=== PATIENT | female | born 1960 | race African-American/Black ===

== ENCOUNTER 2024-01-17 05:27 | Emergency (ER) | payer OTHER, SELFPAY ==
[2024-01-17 05:56] VITALS: BP 127/59; PULSE 66; RESP 18; TEMP 36.5; O2SAT 96; BMI 38.0
[2024-01-17 06:12] VITALS: BP 144/77; PULSE 67; RESP 17; TEMP 36.6; O2SAT 98
--- OUTSIDE RECORDS SUMMARY | 2024-01-17 06:36 | XMS_ITS | Continuity of Care Document ---
Author Organization [facility] Address [address] [place] [address]- Care Team Providers Care Arbitrator Name Role Phone Nessa Sheridan MD Primary Care Physician Encounter [facility] Date(s): 04/12/21 - 05/12/21 [facility] [address] [place] [address] Attending Physician: Jeffrey Tyler Admitting Physician: Jeffrey Tyler Referring Physician: Jeffrey Tyler Allergies, Adverse Reactions, Alerts Substance Reaction Severity Status penicillins Active Immunizations Given and Recorded Vaccine Date Status Refusal Reason influenza virus vaccine, inactivated 06/07/19 Give n tetanus/diphtheria/pertussis, acel(Tdap) 04/13/19 Given Medications Percocet-5/325 325 mg-5 mg oral tablet 1 tablet, By Mouth, Every 6 hours, PRN Pain , Moderate, # 12 tablet, 0 Refills, Maintenance Start Date: 03/31/12 Stop Date: 04/03/12 Status: Ordered Problem List Condition Effective Dates Status Health Status Inform ant Chronic anterior uveitis(Confirmed) 1 Active Glaucoma(Confirmed) Active Chronic knee pain(Confirmed) Active Morbid obesity(Confirmed) Active 1DR Shield Social History Social History Type Response Smoking Status Never (less than 100 in lifetime) entered on: 04/13/19 Sex Female
--- OUTSIDE RECORDS SUMMARY | 2024-01-17 06:37 | XMS_ITS | Continuity of Care Document ---
Author Organization [facility] [employer] Address [address] [place] [address], [address] [place] [address]- Care Team Providers Care Structural Designer Name Role Phone Nessa Sheridan MD Primary Care Physician [phone] [id number] Date(s): 02/24/20 - 06/17/20 [facility] [employer] [facility] [address] [facility], [address] [place] [address]- [facility] Attending Physician: Not on Staff, Attending MD Referring Physician: Nessa Sheridan MD Allergies, Adverse Reactions, Alerts Substance Reaction Severity Status penicillins Active Immunizations Given and Recorded Vaccine Date Status Refusal Reason influenza virus vaccine, inactivated 06/07/19 Give n tetanus/diphtheria/pertussis, acel(Tdap) 04/13/19 Given Medications MoviPrep oral powder for reconstitution See Instructions, 240 mL By Mouth Every 15 minutes, # 2,000 mL, 0 Refills, Maintenance, 06/07/19 16:27:15 EDT, 240 mL By Mouth Every 15 minutes Start Date: 06/07/19 Status: Ordered Percocet-5/325 325 mg-5 mg oral tablet 1 [...]
--- OUTSIDE RECORDS SUMMARY | 2024-01-17 06:37 | XMS_ITS | Continuity of Care Document ---
Author Organization [facility] ter Address [address] [place] [address]- Care Team Providers Care Boom Master Name Role Phone Nessa Sheridan MD Primary Care Physician [phone] [place] [facility] Date(s): 05/09/22 - 06/11/[address] [address] Attending Physician: Che Zaman Admitting Physician: Che Zaman Referring Physician: Che Zaman Allergies, Adverse Reactions, Alerts Substance Reaction Severity Status penicillins Active Immunizations Given and Recorded Vaccine Date Status Refusal Reason influenza virus vaccine, inactivated 06/07/19 Give n tetanus/diphtheria/pertussis, acel(Tdap) 04/13/19 Given Medications Timolol 0.5% Ophth Eyes, Both, 2 times a day, Refills 0, Maintenance, 04/13/19 17:39:21 EDT Start Date: 04/13/19 Status: Ordered Problem List Condition Confirmation Course Effective Dates Status Health St atus Informant Chronic anterior uveitis 1 Confirmed Active Glaucoma Confirmed Active Chronic knee pain Confirmed Active Morbid obesity Confirmed Active Severe obesity Confirmed Active 1DR Shield Social History Social History Type Response Smoking Status Never (less than 100 in lifetime) entered on: 04/13/19 Sex Female Patient Care team information Personnel Name: Nessa Sheridan MD Address: Address: [address] [place] [address]
--- OUTSIDE RECORDS SUMMARY | 2024-01-17 06:37 | XMS_ITS | Continuity of Care Document ---
Author Organization [facility] Address [address] [place] [address]- Care Team Providers Care Office Manager Name Role Phone Nessa Sheridan MD Primary Care Physician [place] [facility] [place](s[place] 11/18/22 - 12/18/22 [facility] [address] [address] Attending Physician: Jeffrey Tyler Admitting Physician: AdmtrJeffrey Referring Physician: Admtr, Jeffrey Allergies, Adverse Reactions, Alerts Substance Reaction Severity Status penicillins Active Immunizations Given and Recorded Vaccine Date Status Refusal Reason influenza virus vaccine, inactivated 06/07/19 Give n tetanus/diphtheria/pertussis, acel(Tdap) 04/13/19 Given Medications NuLYTELY with Flavor Packs oral powder for reconstitution See Instructions, split prep method. drink one half the night before procedure at 5pm. drink secondhalf six hours prior to procedure., # 4,000 mL, 0 Refills, Maintenance, 12/11/22 13:57:00 EDT, [facility]/pharmacy #[id number], test date 04/23/23, split prep method... Start Date: 12/11/22 Status: Ordered Splint See Instructions, # 2 each, Maintenance, wrist splint for both hands and wrist, DX: carpal tunnel patient needs a pair, 11/24/22 9:00:00 EDT, Supply, 153, cm, 09/23/22 13:19:00 EST, Height Start Date: 11/24/22 Status: Ordered Timolol 0.5% Ophth Eyes, Both, 2 times [...] 04/13/19 Sex Female Patient Care team information Care Team Personnel Name: Nessa Sheridan MD Position: S Primary Care Physician Member Role: PCP Address: Address: [address] [place] [address] [place] [address]- [place] Care Team Related Persons Name: MARSHALL TRAN Address: [place] [address] Name: SRINATH RUSSO Address: home [address] [place] [address] Name: RONEL ABURTO Address: [facility]
--- OUTSIDE RECORDS SUMMARY | 2024-01-17 06:37 | XMS_ITS | Continuity of Care Document ---
Author Organization [facility] ter Address [address] [place] [address]- Care Team Providers Care Quantity Surveyor Name Role Phone Nessa Sheridan MD Primary Care Physician [phone] Encounter [facility] Date(s): 01/16/23 - 05/23/[address] [address] Attending Physician: Lakeshia Guan CNM Admitting Physician: Lakeshia Guan CNM Referring Physician: Lakeshia Guan CNM Allergies, Adverse Reactions, Alerts Substance Reaction Severity [...] mL, 0 Refills, Maintenance, 12/11/22 13:57:00 EDT, [facility]/pharmacy #[id number], test date 04/23/23, split prep method... [...] Team Personnel Name: Nessa Sheridan MD Position: [facility] Physician - Primary Care Member Role: PCP Address: Address: [address] [place] [address] [place] [address]- Care Team Related Persons Name: MARSHALL TRAN Address: [place] [address] Name: SRINATH RUSSO Address: home [address] [place] [address] Name: RONEL ABURTO Address: [facility]
--- OUTSIDE RECORDS SUMMARY | 2024-01-17 06:37 | XMS_ITS | Continuity of Care Document ---
Author Organization [facility] ter Address [address] [place] [address]- Care Team Providers Care Reservoir Engineering Manager Name Role Phone Nessa Sheridan MD Primary Care Physician Encounter [facility] Date(s): 10/06/22 - 07/16/[address] [address] Attending Physician: Miguel Jung MD Admitting Physician: Miguel Jung MD Allergies, Adverse Reactions, Alerts Substance Reaction [...] mL, 0 Refills, Maintenance, 12/11/22 13:57:00 EDT, [facility]/pharmacy #[id number], test date 04/23/23, split prep method... [...] Team Personnel Name: Nessa Sheridan MD Position: [facility] Physician - Primary Care Member Role: PCP Address: Address: [address] [place] [address]- [place] Care Team Related Persons Name: MARSHALL TRAN Address: [place] [address] Name: SRINATH RUSSO Address: home [address] [place] [address] Name: RONEL ABURTO Address: [facility]
--- OUTSIDE RECORDS SUMMARY | 2024-01-17 06:37 | XMS_ITS | Continuity of Care Document ---
Author Organization [facility] Address [address] [place] [address]- Care Team Providers Care Patient Care Technician Name Role Phone Nessa Sheridan MD Primary [facility] Physician [id number] Date[facility] 04/06/21 - 05/12/21 [facility] [address] [place] [address] Attending Physician: Bubba Pryor MD Admitting Physician: Bubba Pryor MD Referring Physician: Nessa Sheridan MD Allergies, [...]
--- OUTSIDE RECORDS SUMMARY | 2024-01-17 06:37 | XMS_ITS | Continuity of Care Document ---
Author Organization [facility] Address [address] [facility] [place] [address]- Care Team Providers Care Materials Management Clerk Name Role Phone Nessa Sheridan MD Primary Care Physician [phone] Encounter 07/20/23 - 08/24/23 [facility] [address], [address] [address]- Attending Physician: Lakeshia Guan CNM Admitting Physician: [...] mL, 0 Refills, Maintenance, 12/11/22 13:57:00 EDT, [facility]/pharmacy #[id number], test date 04/23/23, split prep [...] Personnel Name: Nessa Sheridan MD Position: S Physician - Primary Care Member Role: PCP Address: Address: [address] [place] [address] [place] [address]- Care Team Related Persons Name: MARSHALL TRAN Address: [place] [address] Name: SRINATH RUSSO Address: home [address] [place] [address] Name: IRWIN CR Address: [place] [address] Name: RONEL ABURTO Address: [facility]
--- OUTSIDE RECORDS SUMMARY | 2024-01-17 06:37 | XMS_ITS | Continuity of Care Document ---
Author Organization [facility] Address [address] [facility] [address] [place] [address]- Care Team Providers Care Fisheries Enforcement Officer Name Role Phone Nessa Sheridan MD Primary Care Physician Encounter 08/01/23 - 08/08/23 [facility] [address], [address] [place] [address]- Attending Physician: Lakeshia Guan CNM Admitting Physician: [...] mL, 0 Refills, Maintenance, 12/11/22 13:57:00 EDT, [facility]/pharmacy #[id number], test date 04/23/23, split prep method... [...] Active Severe obesity Confirmed Active 1DR Shield Results Radiology Reports * Exam Date Time Procedure Performing Provider Status 08/01/23 2:28 PM MM Digital Mammo Screening Footit , C athrine; Auth (Verified) Notes: (MM Digital Mammo Screening) Reason For Exam: Z12.31 ROUTINE SCREENING RESULT: MM Digital Mammo Screening PROCEDURE: MM Digital Mammo Screening INDICATION: Screening. No known palpable abnormalities. COMPARISON: Prior mammograms dating back to 01/22/2017. TECHNIQUE: Full-field digital CC and MLO 3D tomosynthesis images of both breasts were acquired. Computer-aided detection (CAD) was utilized in the interpretation of this study. DENSITY: The breast tissue is almost entirely fatty. FINDINGS: No suspicious masses, suspicious microcalcifications, or areas of architectural distortion are seen in either breast to suggest malignancy. IMPRESSION: No mammographic evidence of malignancy. RECOMMENDATION: Annual mammographic screening BI-RADS: 1 (Negative) Lay letter mailed to patient WSN: [id number] Ordering Physician: Nessa Sheridan Dictated By: Jigna Montilla MD Dictated Date/Time: 08/03/23 9:35 am Reviewed By: Jigna Montilla MD Signed By: Jigna Montilla MD Signed Date/Time: 08/03/23 9:35 am Transcribed By: GILBERTO New Media Strategist Date/Time: 08/03/23 9:32 am Birads: Social History Social History Type Response Smoking Status Never (less than 100 in lifetime) entered on: 04/13/19 Sex Female Patient Care team information Care Team Personnel Name: Nessa Sheridan MD Position: S Physician - Primary Care Member Role: PCP Address: Address: [address] [place] [address] [place] [address]- Care Team Related Persons Name: CHELSEA MARSHALL Address: [place] [address] Name: SRINATH RUSSO Address: [place] [address] Name: RONEL ABURTO Address: [facility]
--- OUTSIDE RECORDS SUMMARY | 2024-01-17 06:37 | XMS_ITS | Continuity of Care Document ---
Author Organization [facility] ter Address [address] [place] [address]- Care Team Providers Care Information Systems Security Developer Name Role Phone Nessa Sheridan MD Primary Care Physician [phone] Encounter [facility] Date(s): 06/08/19 - 03/14/[address] [address] [facility] Attending Physician: Kale Moran MD Admitting Physician: Kale Moran MD Allergies, Adverse Reactions, Alerts Substance Reaction [...]
--- OUTSIDE RECORDS SUMMARY | 2024-01-17 06:37 | XMS_ITS | Continuity of Care Document ---
Author Organization [facility] Address [address] [facility] [place] [address]- Care Team Providers Care Solar Energy System Installer Helper Name Role Phone Nessa Sheridan MD Primary Care Physician [phone] Encounter 05/24/23 - 08/17/23 [facility] [address], [address] [address]- Attending Physician: Lakeshia Guan CNM Admitting Physician: [...] mL, 0 Refills, Maintenance, 12/11/22 13:57:00 EDT, [facility]/pharmacy #1130, test date 04/23/23, split prep [...] Primary Care Member Role: PCP Address: Address: [address] [place] [address] [place] [address]- Care Team Related Persons Name: MARSHALL TRAN Address: [place] [address] Name: SRINATH RUSSO Address: home [address] [place] [address] Name: IRWIN CR Address: [place] [address] Name: RONEL ABURTO Address: [facility]
--- OUTSIDE RECORDS SUMMARY | 2024-01-17 06:37 | XMS_ITS | Continuity of Care Document ---
Author Organization [facility] [employer] Address [address] [place] [address], [address] [place] [address]- Care Team Providers Care Tire Center Supervisor Name Role Phone Nessa Sheridan MD Primary Care Physician [phone] [id number] Date(s): 05/18/20 - 06/17/20 [facility] [employer] [facility] [address] [place] [address], [address] [place] [address]- [facility] Attending Physician: AdmJeffrey barclay Admitting Physician: AdmtrJeffrey Referring Physician: Admtr, Jeffrey [...]
--- NOTE | 2024-01-17 06:45 | ED_ITS ---
HPI - Abdominal Pain General Chief Complaint: Abdominal Pain Stated Complaint: stomach pain Time Seen by Provider: 01/17/24 06:31 Source: patient Mode of arrival: ambulatory Limitations: no limitations History of Present Illness HPI narrative: 63 yo female with history of obesity, history of cholecystectomy who presents to the ER for evaluation of diffuse abdominal pain and cramping that started around midnight associated with vomiting x2. She reports pain was initially severe, had her doubling over in pain. She took ibuprofen, Gas-X and Pepto at home for her pain. She had a small bowel movement that was formed stool without any blood. She reports history of constipation and has difficulty moving her bowels but did have a bowel movement yesterday. Since arrival to the hospital this morning the pain has improved, currently 3/10 and comes in waves. Has some mild residual nausea. She had 1 episode of bilious vomiting prior to coming. No fever or chills. No chest pain or shortness of breath. She had chicken last night for dinner with her who has no abdominal pain. MD elicited complaint: abdominal pain Pertinent past history: constipation Onset (ago): hour(s) (6) Pain Consistency: now resolved Location: diffuse Severity: moderate Quality: cramping Migration to: no migration Exacerbating factors: nothing Relieving factors: medication Associated symptoms: nausea, vomiting and constipation Related Data Previous Rx's ?Medication ?Instructions ?Recorded ondansetron 4 mg disintegrating 4 mg PO Q8H PRN nausea and 01/17/24 tablet vomiting #7 tabs Allergies Allergy/AdvReac Type Severity Reaction Status Date / Time Penicillins [PENICILLINS] Allergy Unknown UNKNOWN Verified 01/17/24 07:23 Review of Systems Review of Systems Yes all other systems are reviewed and are negative [facility] Social History Social History Smoked in Last 30 Days: No Use of substances other than those prescribed or required for medical reasons: No Advance Directives: No Advance Directives Information Provided: No Patient : No Physical Exam ED Vital Signs: Vital Signs - 24 hr 01/17/24 05:56 01/17/24 06:12 Temperature 97.7 F 97.8 F Pulse Rate 66 67 Respiratory Rate 18 17 Blood Pressure 127/59 L 144/77 H Pulse Oximetry 96 98 Oxygen Delivery Method Room Air Room Air BMI result Body Mass Index 38.0 Appearance: Alert. Oriented X3. No acute distress. Head: normocephalic, atraumatic. Eyes: Pupils equal, round and reactive to light. ENT: Pharynx normal. No tonsillar swelling or exudate. Neck: Normal inspection. Neck supple. CVS: Normal heart rate and rhythm. Pulses normal. Respiratory: No respiratory distress. Breath sounds normal. Abdomen: Obese, Soft and nontender. +BS x4 Skin: Skin warm and dry. Normal skin color. Normal skin turgor. No rashes. Extremities: No lower extremity edema. No joint swelling. Neuro/psych: Oriented X 3. No motor deficit. No sensory deficit. CN II-XII intact. Normal speech and cognition. Medical Decision Making Medical Decision Making [facility] Narrative: 63-year-old female presents to the ER for evaluation of severe, diffuse abdominal pain that started around midnight, associated with nausea and vomiting. Has since improved after taking some ufpj-tkz-wjfczsy medications at home. On arrival to the ER her vital signs are stable. Her abdominal exam is benign, soft and nontender. She continues to endorse some mild nausea. Ordered sublingual Zofran and a GI cocktail. Labs were ordered which were unremarkable. while in the ER pain remained subsided. she feels her pain was gas related and she is feeling better. she is tolerating PO. at this time she is stable for discharge home with supportive care. return precautions were discussed Differential Diagnosis Differential Diagnoses: The differential diagnosis associated with the presentation includes gastritis, gastroenteritis, colitis, UTI, gas pain, indigestion, GERD Admission/Observation Consideration of admission/observation: Escalation of care including admission/observation considered Lab Data [facility] Lab Attestation statement: I reviewed the patient's lab results. no leukocytosis, no metabolic derangement 01/17/24 06:43 01/17/24 06:43 Labs: Lab Results 01/17/24 01/17/24 Range/Units 06:43 08:17 WBC 8.0 (4.8-10.8) X10*3/uL RBC 4.12 L (4.20-5.50) X10*6/uL Hgb 12.2 (12.0-16.0) g/dl Hct 35.8 L (37.0-47.0) % MCV 86.9 (80.0-98.0) fL MCH 29.6 (27.0-33.0) pg MCHC 34.1 (31.0-35.0) g/dl RDW 12.7 (11.0-16.0) % Plt Count 262 (160-400) X10*3/uL MPV 9.2 L (9.4-12.3) fL Immature Gran % (Auto) 0.9 H (0.0-0.4) % Neut % (Auto) 71.7 (45-73) % Lymph % (Auto) 19.4 L (20-40) % Fleming % (Auto) 5.5 (2-11) % Eos % (Auto) 2.0 (0-4) % Baso % (Auto) 0.5 (0-2) % Lymph # (Auto) 1.5 (1.2-4.9) X10*3/uL Fleming # (Auto) 0.4 (0.1-1.2) X10*3/uL Eos # (Auto) 0.2 (0.0-0.4) X10*3/uL Baso # (Auto) 0.0 (0.0-0.2) X10*3/uL Abs Immat Gran (auto) 0.07 H (0.00-0.03) X10*3/uL Absolute Neuts (auto) 5.7 (2.0-8.3) x10*3/uL Absolute Nucleated RBC 0.000 (0.0-0.012) X10*3/uL Nucleated RBC % (auto) 0.0 (0.0-0.2) /100WBC Sodium 140 (135-145) mmol/L Potassium 3.5 (3.3-5.1) mmol/L Chloride 106 (96-108) mmol/L Carbon Dioxide 22 (22-29) mmol/L Anion Gap 16 (12-20) BUN 14 (9-16) mg/dL Creatinine 0.76 (0.5-1.4) mg/dL Estim Creat Clear Calc 79.9 Estimated GFR > 60 Random Glucose 122 H (60-115) mg/dL Calcium 9.5 (8.4-10.2) mg/dL Total Bilirubin 0.4 (0.0-1.0) mg/dL AST 20 (5-31) U/L ALT 23 (0-31) U/L Alkaline Phosphatase 95 (39-117) U/L Total Protein 7.4 (6.5-8.0) g/dL Albumin 4.0 (3.5-5.0) g/dL Lipase 11 (8-78) U/L Urine Color Yellow Urine Appearance Clear Urine pH 7.0 (5.0-9.0) Ur Specific Glen 1.015 (1.005-1.025) Urine Protein Negative (Neg-Trace) mg/dL Urine Glucose (UA) Negative (Negative) mg/dL Urine Ketones Negative (Negative) mg/dL Urine Blood Negative (Negative) Urine Nitrite Negative (Negative) Ur Leukocyte Esterase Trace H (Negative) Urine RBC 0-2 (0-2) /HPF Urine WBC 0-5 (0-5) /HPF Ur Squamous Epith Cells 3-5 (0-2) /HPF Urine Bacteria None Seen (None Seen) Hyaline Casts 0-2 (0-2) /LPF Independent Historian Clinical information obtained from an independent historian. History obtained from or confirmed by: Spouse Tests considered The following testing was considered but not selected: considered CT abd/pelvis but abd examis benign and pain improved Prescription Management I considered prescription management with: Pain Medication Medications Administered Discontinued Medications Generic Name Dose Route Start Last Admin Trade Name Freq PRN Reason Stop Dose Admin Al Hydroxide/Mg Hydroxide 30 ml 01/17/24 06:45 01/17/24 07:01 Magnesium Hydrox/Alum Hydrox 30 Ml Oral.Susp PO 01/17/24 06:46 30 ml ONCE ONE Administration Belladonna Alkaloids/Phenobarbital 10 ml 01/17/24 06:45 01/17/24 07:00 Phenobarb/Hyoscy/Atropine/Scop 10 Ml Elixir PO 01/17/24 06:46 10 ml ONCE ONE Administration Lidocaine HCl 15 ml 01/17/24 06:45 01/17/24 07:00 Lidocaine Hcl Viscous 2 % 15 Ml Solution MUCOUS MEM 01/17/24 06:46 15 ml ONCE ONE Administration Ondansetron HCl 4 mg 01/17/24 06:45 01/17/24 07:02 Ondansetron Odt 4 Mg Tab.Rapdis TRANSLINGU 01/17/24 06:46 4 mg ONCE ONE Administration Critical Care Time Critical Care Time Critical Care Time: No Discharge Plan Discharge Clinical Impression: Abdominal pain Patient Disposition: Home, Self-Care Instructions: Abdominal Pain (ED) Additional Instructions: You lab workup today was unremarkable. Your urine test was negative for infection Recommend rest and plenty of oral hydration. Stick to a bland diet like soup and toast while you are not feeling well. Take the prescribed medication as needed for nausea. Recommend over the counter Miralax for constipation Follow up with your doctor as needed. If you develop new or worsening symptoms call 911 or come back to the ER for further evaluation. Prescriptions: New ondansetron 4 mg tablet,disintegrating 4 mg PO Q8H PRN (Reason: nausea and vomiting) Qty: 7 0RF Referrals: Nessa Sheridan MD [Primary Care Provider] - Print Language: Armenian
[2024-01-17 06:47] LABS: MANUAL DIFF FLAG NO
[2024-01-17 06:48] LABS: Basophils Percent Auto 0.5 % (0-2); Eosinophils Absolute Auto 0.2 X10*3/uL (0.0-0.4); Hematocrit 35.8 % (37.0-47.0); Hemoglobin 12.2 g/dl (12.0-16.0); Imm Gran Abs Auto 0.07 X10*3/uL (0.00-0.03); Imm Gran Pct Auto 0.9 % (0.0-0.4); Lymphocytes Absolute Auto 1.5 X10*3/uL (1.2-4.9); Lymphocytes Percent Auto 19.4 % (20-40); Mean Corpuscular HGB Conc 34.1 g/dl (31.0-35.0); Mean Corpuscular Hemoglobin 29.6 pg (27.0-33.0); Mean Corpuscular Volume 86.9 fL (80.0-98.0); Mean Platelet Volume 9.2 fL (9.4-12.3); Monocytes Absolute Auto 0.4 X10*3/uL (0.1-1.2); Monocytes Percent Auto 5.5 % (2-11); Neutrophils Absolute Auto 5.7 x10*3/uL (2.0-8.3); Neutrophils Percent Auto 71.7 % (45-73); Platelet Count 262 X10*3/uL (160-400); Red Blood Count 4.12 X10*6/uL (4.20-5.50); Red Cell Distribution Width 12.7 % (11.0-16.0)
[2024-01-17] MEDS: PHENobarb/Hyoscy/Atropine/Scop 10 ML ELIXIR PO (07:00)
[2024-01-17] MEDS: Lidocaine HCl Viscous 2 % 15 ML SOLUTION MUCOUS MEM (07:00)
--- NOTE | 2024-01-17 07:00 | PC.NURSE ---
Pt reports generalized abd pain since midnight, burning. Along with multiple episodes of vomiting. Pt reports pain has subsided since she got to ER. Denies any CP, SOB, diarrhea, fevers, cough. Pt alert and oriented, breathing even and unlabored, skin WNL.
[2024-01-17] MEDS: Magnesium Hydrox/Alum Hydrox 30 ML ORAL.SUSP PO (07:01)
[2024-01-17] MEDS: Ondansetron ODT 4 MG TAB.RAPDIS TRANSLINGU (07:02)
[2024-01-17 07:03] LABS: Alanine Aminotransferase 23 U/L (0-31); Alkaline Phosphatase 95 U/L (39-117); Anion Gap 16 (12-20); Aspartate Amino Transferase 20 U/L (5-31); Bilirubin Total 0.4 mg/dL (0.0-1.0); Blood Urea Nitrogen 14 mg/dL (9-16); Calcium 9.5 mg/dL (8.4-10.2); Carbon Dioxide 22 mmol/L (22-29); Chloride 106 mmol/L (96-108); Creatinine Clr Calc Pharmacy 79.9; Estimated Glomerular Filt Rate > 60; Glucose Random 122 mg/dL (60-115); Potassium 3.5 mmol/L (3.3-5.1); Sodium 140 mmol/L (135-145); Total Protein 7.4 g/dL (6.5-8.0)
[2024-01-17 08:03] LABS: Lipase 11 U/L (8-78)
[2024-01-17 08:23] LABS: Appearance Urine Clear; Color Urine Yellow; Glucose Urine UA Negative (Negative); Leukocyte Esterase Urine Trace (Negative); Nitrite Urine Negative (Negative); Specific Gravity - Urine 1.015 (1.005-1.025); UMIC TRIGGER UACC YES; Urine Blood Negative (Negative); Urine Ketones Negative (Negative); Urine Protein Negative (Neg-Trace)
[2024-01-17 08:28] LABS: Bacteria Urine None Seen (None Seen); Hyaline Casts Urine 0-2 /LPF (0-2); RBC Urine 0-2 /HPF (0-2); WBC Urine 0-5 /HPF (0-5)
[2024-01-17 09:01] VITALS: BP 115/70; PULSE 66; RESP 15; TEMP 36.5; O2SAT 100
[2024-01-17 09:02] VITALS: BP 115/70; PULSE 66; RESP 15; TEMP 36.5; O2SAT 100
== END 2024-01-17 09:04 | disposition home or self-care (01) ==
PROVIDERS: Physician Assistant; Emergency Provider Emergency Medicine; PCP Internal Medicine
DX: R10.9 Unspecified abdominal pain (principal)
CPT/HCPCS: 36415; 80053; 81001; 83690; 85025; 99283; 99284